=== PATIENT | male | born 1960 | race Caucasian/White ===

== ENCOUNTER 2017-02-05 10:12 | Inpatient (IN) | payer BC ==
[2017-02-05] MEDS ORDERED: Magnesium Hydroxide 400 MG/5 ML Susp 30 ML Cup PO PRN (12:05)
[2017-02-05] MEDS ORDERED: Acetaminophen/HYDROcodone 325-5 MG Tab PO PRN (12:05)
[2017-02-05] MEDS ORDERED: Docusate Sodium 100 MG Cap PO PRN (12:05)
[2017-02-05] MEDS ORDERED: Temazepam 15 MG Cap PO PRN (12:05)
[2017-02-05] MEDS ORDERED: Sodium Chloride 0.9% 10 ML Syringe FLUSH PRN (12:05)
[2017-02-05] MEDS ORDERED: Acetaminophen 325 MG Tab PO PRN (12:08)
[2017-02-05] MEDS ORDERED: Enoxaparin 40 MG/0.4 ML Syringe SUBCUT SCH (12:30)
[2017-02-05] MEDS: Levofloxacin/Dextrose 5%-Water 500 MG in Premix Bag 1 BAG IV SCH (12:34)
[2017-02-05] MEDS: cefTRIAXone 1 GM Vial IVPUSH SCH (12:35)
[2017-02-05 12:57] LABS: CHLORIDE,CL 104 mEq/L (98-106); SODIUM,NA 138 mEq/L (136-145)
[2017-02-05] MEDS ORDERED: methylPREDNISolone Sodium Succinate 125 MG/2 ML SDV IVPUSH SCH (13:00)
[2017-02-05] MEDS ORDERED: Formoterol/Mometasone 100-5 MCG 8.8 GM Inhaler IH PRN (13:08)
[2017-02-05] MEDS ORDERED: Albuterol/Ipratropium 3.0-0.5 MG/3 ML Neb Soln ONE (13:21)
[2017-02-05] MEDS: Ketorolac 30 MG/ML SDV IVPUSH PRN ×2 (15:07→21:45)
[2017-02-05] MEDS: Albuterol/Ipratropium 3.0-0.5 MG/3 ML Neb Soln NEB SCH ×2 (16:57→21:05)
[2017-02-05] MEDS: Zolpidem 5 MG Tab PO SCH (20:02)
[2017-02-05] MEDS: Simvastatin 40 MG Tab PO SCH (20:03)
[2017-02-06] MEDS: Folic Acid 1 MG Tab PO SCH (08:04)
[2017-02-06] MEDS: Fenofibrate 160 MG Tab PO SCH (08:04)
[2017-02-06] MEDS: Sertraline 100 MG Tab PO SCH (08:05)
[2017-02-06] MEDS: Lisinopril 10 MG Tab PO SCH (08:05)
[2017-02-06] MEDS: Albuterol/Ipratropium 3.0-0.5 MG/3 ML Neb Soln NEB SCH ×4 (09:29→20:52)
[2017-02-06] MEDS: Ketorolac 30 MG/ML SDV IVPUSH PRN ×2 (10:05→19:55)
[2017-02-06] MEDS: Enoxaparin 40 MG/0.4 ML Syringe SUBCUT SCH (11:35)
[2017-02-06] MEDS: methylPREDNISolone Sodium Succinate 125 MG/2 ML SDV IVPUSH SCH (11:36)
[2017-02-06] MEDS: cefTRIAXone 1 GM Vial IVPUSH SCH (11:39)
[2017-02-06] MEDS: Levofloxacin/Dextrose 5%-Water 500 MG in Premix Bag 1 BAG IV SCH (11:45)
--- NOTE | 2017-02-06 13:28 | PN ---
DATE: 02/06/2017 S: Jose Manuel Ortiz came in with severe pansinusitis, bronchiolitis and started on IV antibiotics. O: On examination, he is quite a bit better today. His erythema and edema of face went down. Chest is clear. ASSESSMENT: PANSINUSITIS, GRAM-NEGATIVE RODS. P: Continue IV antibiotics. TRISTA/GUS /[id number]
[2017-02-06] MEDS: Simvastatin 40 MG Tab PO SCH (19:52)
[2017-02-06] MEDS: Zolpidem 5 MG Tab PO SCH (19:53)
[2017-02-07] MEDS: Fenofibrate 160 MG Tab PO SCH (07:51)
[2017-02-07] MEDS: Lisinopril 10 MG Tab PO SCH (07:51)
[2017-02-07] MEDS: Folic Acid 1 MG Tab PO SCH (07:51)
[2017-02-07] MEDS: Sertraline 100 MG Tab PO SCH (07:51)
--- NOTE | 2017-02-07 08:58 | PN ---
DATE: 02/07/2017 S: Jose Manuel Ortiz is in with a pansinusitis, bronchiolitis. O: On examination, swelling of his face has gone down. Tender over the maxillary sinus, chest relatively clear. Cardiac sounds are good. He has grown Escherichia coli out of his sputum and his nasopharyngeal culture sensitivities pending. TRISTA/GUS /[id number]
[2017-02-07] MEDS: Albuterol/Ipratropium 3.0-0.5 MG/3 ML Neb Soln NEB SCH ×2 (09:09→13:24)
[2017-02-07 11:53] VITALS: BP 131/74
[2017-02-07] MEDS: Enoxaparin 40 MG/0.4 ML Syringe SUBCUT SCH (13:24)
[2017-02-07] MEDS: Levofloxacin/Dextrose 5%-Water 500 MG in Premix Bag 1 BAG IV SCH (13:24)
[2017-02-07] MEDS: methylPREDNISolone Sodium Succinate 125 MG/2 ML SDV IVPUSH SCH (13:24)
[2017-02-07] MEDS: cefTRIAXone 1 GM Vial IVPUSH SCH (13:24)
[2017-02-07] MEDS: Ketorolac 30 MG/ML SDV IVPUSH PRN (13:32)
--- NOTE | 2017-02-10 07:53 | DISCH ---
HISTORY: Jose Manuel Ortiz came in with bronchiolitis, pansinusitis, and started on IV antibiotics. Cultures grew out E. coli, both sputum and nasopharyngeal sensitive to the Rocephin he is on. At the time of discharge, his facial swelling had gone down. Lungs were relatively clear. Lab in the hospital, elevated white count. Urinalysis looked good. Panel 14 looked good other than the elevated C-reactive protein. DISPOSITION: The patient now discharged home. He will be outpatient IV Rocephin for the next 3 days. DISCHARGE MEDICATIONS: Home medications plus prednisone 40 daily x5 days, and Toradol 10 q.i.d. #20. DISCHARGE DIAGNOSIS: 1. PANSINUSITIS. 2. HYPERTENSION. 3. DEPRESSION. TRISTA/GUS /[id number]
== END 2017-02-07 16:15 | disposition home or self-care (01) | DRG 113 ==
LOC: CC.MS 10:12 → CC.FCMC 10:12 → CC.MS 11:22 → UNDOADMIN 11:22 → CC.MS 12:05
PROVIDERS: ADMIT General Practice; ATTEND General Practice
DX: J01.40 Acute pansinusitis, unspecified (principal); B96.20 Unspecified Escherichia coli [E. coli] as the cause of diseases classified elsewhere; Z79.899 Other long term (current) drug therapy; R05 Cough
CPT/HCPCS: 36415; 70486; 71020; 80053; 81001; 83735; 84443; 85025; 86140; 87070; 87077; 87186; 87205; 94060; 94640; 94640-76; A9270-GY; J0696; J1650; J1885; J1956; J2930

== ENCOUNTER 2017-05-03 00:15 | Emergency (ER) | payer BC ==
[2017-05-03 00:21] VITALS: BP 123/74
[2017-05-03 01:12] LABS: CHLORIDE,CL 107 mEq/L (98-106); SODIUM,NA 140 mEq/L (136-145)
--- NOTE | 2017-05-03 01:19 | EDM.PDOC ---
ED HPI GENERAL MEDICAL PROBLEM - General Chief Complaint: Lower Extremity Injury/Pain Stated Complaint: swollen legs/ankles Time Seen by Provider: 05/03/17 00:15 - History of Present Illness INITIAL COMMENTS - FREE TEXT/NARRATIVE: C/O of bilateral lower leg edema Onset: Today Duration: Hour(s): Location: Reports: Lower Extremity, Left, Lower Extremity, Right - Related Data Allergies Allergy/AdvReac Type Severity Reaction Status Date / Time No Known Allergies Allergy Verified 05/03/17 00:22 Home Meds: Home Meds Fenofibrate Nanocrystallized [Tricor] 145 mg PO DAILY 12/28/13 [History] Quinapril [Accupril] 20 mg PO DAILY 12/28/13 [History] Rosuvastatin [Crestor] 20 mg PO DAILY 12/28/13 [History] Mometasone/Formoterol [Dulera 100-5 MCG] 2 inh INH BID PRN 05/20/16 [History] Zolpidem Tartrate [Zolpidem Tartrate ER] 12.5 mg PO BEDTIME 05/20/16 [History] Folic Acid 1 mg PO DAILY 02/05/17 [History] Sertraline HCl [Zoloft] 100 mg PO DAILY 02/05/17 [History] Past Medical History Cardiovascular History: Reports: High Cholesterol, Hypertension Respiratory History: Reports: COPD, Sleep Apnea Gastrointestinal History: Reports: Diverticulosis Psychiatric History: Reports: Depression Oncologic (Cancer) History: Reports: Other (See Below) Other Oncologic History: SQUAMOUS CELL CARCINOMA. Dermatologic History: Reports: Other (See Below) Other Dermatologic History: SPOTS REMOVED OF LEGS. - Past Surgical History HEENT Surgical History: Reports: Naso-Sinus Surgery, Tonsillectomy Other HEENT Surgeries/Procedures: surgery to remove skin cancer on head Social & Family History - Family History Family Medical History: Noncontributory - Tobacco Use Smoking Status *Q: Never Smoker Years of Tobacco use: 40 Packs/Tins Daily: 0.2 - Caffeine Use Caffeine Use: Reports: Coffee - Recreational Drug Use Recreational Drug Use: No Review of Systems - Review of Systems Review Of Systems: ROS reveals no pertinent complaints other than HPI. ED EXAM, GENERAL - Physical Exam Exam: See Below Free Text/Narrative:: Bilateral lower leg edema 3 + pitting edema noted, Denies SOB, BBS clear no acute distress noted vs stable Exam Limited By: Altered Mental Status General Appearance: Alert Throat/Mouth: Normal Inspection Head: Atraumatic Neck: Normal Inspection Respiratory/Chest: No Respiratory Distress, Lungs Clear, Normal Breath Sounds Cardiovascular: Normal Peripheral Pulses, Regular Rate, Rhythm Back Exam: Normal Inspection Extremities: Normal Inspection Neurological: Alert, Oriented Psychiatric: Normal Affect Skin Exam: Warm, Dry, Intact Course - Vital Signs Last Recorded V/S: Last Vital Signs Temp 98.2 F 05/03/17 00:15 Pulse 68 05/03/17 00:15 Resp 20 05/03/17 00:15 BP 123/74 05/03/17 00:15 Pulse Ox 94 L 05/03/17 00:15 - Orders/Labs/Meds Labs: Laboratory Tests 05/03/17 05/03/17 Range/Units 00:50 00:50 WBC 6.7 (5.0-10.0) 10^3/uL RBC 3.51 L (4.50-6.00) 10^6/uL Hgb 10.6 L (14.0-18.0) g/dL Hct 32.3 L (40.0-54.0) % MCV 92.0 (82.0-94.0) fL MCH 30.2 (27.0-32.0) pg MCHC 32.8 L (33.0-38.0) g/dL RDW Coeff of Erickson 14.3 (11.0-15.0) % Plt Count 128 L (150-400) 10^3/uL Neut % (Auto) 61.8 (35-85) % Lymph % (Auto) 26.1 (10-55) % Hawkins % (Auto) 8.9 (0-16) % Eos % (Auto) 2.9 (0-5) % Baso % (Auto) 0.3 (0-3) % Neut # (Auto) 4.12 (1.80-7.00) 10^3/uL Lymph # (Auto) 1.74 (1.00-4.80) 10^3/uL Hawkins # (Auto) 0.59 (0.00-0.80) 10^3/uL Eos # (Auto) 0.19 (0.00-0.45) 10^3/uL Baso # (Auto) 0.02 10^3/uL Sodium 140 (136-145) mEq/L Potassium 3.9 (3.5-5.0) mEq/L Chloride 107 H (98-106) mEq/L Carbon Dioxide 23 (21-32) mmol/L BUN 20 H (7-18) mg/dL Creatinine 1.2 (0.7-1.3) mg/dL Est Cr Clr Drug Dosing 69.28 mL/min Estimated GFR (MDRD) > 60 (>=60) mL/min Glucose 108 H D (75-99) mg/dL Calcium 8.7 (8.4-10.1) mg/dL Total Bilirubin 0.4 (0.0-1.0) mg/dL AST 26 (15-37) U/L ALT 39 (12-78) U/L Alkaline Phosphatase 29 L (46-116) U/L [id number] Pept 286 (0-1000) pg/nL Total Protein 6.2 L (6.4-8.2) g/dL Albumin 3.3 L (3.4-5.0) g/dL Departure - Departure Time of Disposition: 01:17 Disposition: Home, Self-Care 01 Clinical Impression: Dependent edema - Discharge Information Forms: ED Department Discharge Additional Instructions: Elevate legs 3 times a day for 20 minutes. Follow up with your regular doctor next week for ay further problems.
== END 2017-05-03 01:26 | disposition home or self-care (01) ==
LOC: CC.ED 00:15
DX: R60.0 Localized edema (principal); E78.00 Pure hypercholesterolemia, unspecified; I10 Essential (primary) hypertension; J44.9 Chronic obstructive pulmonary disease, unspecified; F32.9 Major depressive disorder, single episode, unspecified; Z98.890 Other specified postprocedural states; Z79.899 Other long term (current) drug therapy
CPT/HCPCS: 36415; 80053; 83880; 85025; 99284